=== PATIENT | female | born 1985 | race American Indian/Alaskan Native ===

== ENCOUNTER 2020-12-10 16:47 | Emergency (ER) | payer MEDICAID ==
[2020-12-10 16:54] VITALS: BP 121/84
--- NOTE | 2020-12-10 17:11 | Emergency Department Report ---
ED ENT HPI - General Chief complaint: Earache Stated complaint: BOTH EARS HURT Time Seen by Provider: 12/10/20 17:02 Source: patient Mode of arrival: Ambulatory Limitations: No Limitations - History of Present Illness Initial comments: Patient is a 35-year-old female presents emergency room with complaints of wanting to have her ears checked. Patient states that approximately 3 months ago she went to another hospital and was diagnosed with otitis externa and given antibiotic eardrops. She states approximately a month ago she went again to have her ears evaluated and reports that she was told her ears were normal. She states that she is still been having some ear pressure and occasionally has drainage. She denies any fever, swelling, difficulty hearing. No past medical history. Allergy to codeine and penicillin. - Related Data Allergies Allergy/AdvReac Type Severity Reaction Status Date / Time codeine AdvReac Itching Verified 12/10/20 16:55 Penicillins AdvReac Anaphylaxis Verified 12/10/20 16:55 ED Dental HPI - General Chief complaint: Earache Stated complaint: BOTH EARS HURT Time Seen by Provider: 12/10/20 17:02 Source: patient Mode of arrival: Ambulatory Limitations: No Limitations - Related Data Allergies Allergy/AdvReac Type Severity Reaction Status Date / Time codeine AdvReac Itching Verified 12/10/20 16:55 Penicillins AdvReac Anaphylaxis Verified 12/10/20 16:55 ED Review of Systems ROS: Stated complaint: BOTH EARS HURT Other details as noted in HPI Comment: All other systems reviewed and negative ED Physical Exam - General Limitations: No Limitations General appearance: alert, in no apparent distress - Head Head exam: Present: atraumatic, normocephalic - Eye Eye exam: Present: normal appearance - ENT ENT exam: Present: mucous membranes moist, TM's normal bilaterally, normal external ear exam, other (bilateral TMs and canals are normal in appearance, no drainage, no scaling, no erythema, no TM perforation, no mastoid ttp or edema bilaterally ) - Neurological Exam Neurological exam: Present: alert, oriented X3 - Psychiatric Psychiatric exam: Present: normal affect, normal mood - Skin Skin exam: Present: warm, dry, intact ED Course Vital Signs 12/10/20 16:53 Temperature 98.1 F Pulse Rate 85 Respiratory 16 Rate Blood Pressure 121/84 [Left] O2 Sat by Pulse 99 Oximetry ED Medical Decision Making - Medical Decision Making Patient is a 35-year-old female presents emergency room with complaints of wanting to have her ears checked. Patient states that approximately 3 months ago she went to another hospital and was diagnosed with otitis externa and given antibiotic eardrops. She states approximately a month ago she went again to have her ears evaluated and reports that she was told her ears were normal. She states that she is still been having some ear pressure and occasionally has drainage. She denies any fever, swelling, difficulty hearing. No past medical history. Allergy to codeine and penicillin. Vitals are normal. On exam:bilateral TMs and canals are normal in appearance, no drainage, no scaling, no erythema, no TM perforation, no mastoid ttp or edema bilaterally. Patient has no signs of infection. Patient will be referred to ENT. Discussed the importance of follow-up and discussed return precautions. Advised patient Follow-up with a institutional research director. Return to emergency room for any new or worsening symptoms. Critical care attestation.: If time is entered above; I have spent that time in minutes in the direct care of this critically ill patient, excluding procedure time. ED Disposition Clinical Impression: Ear pressure Qualifiers: Laterality: bilateral Qualified Code(s): H93.8X3 - Other specified disorders of ear, bilateral Disposition: 01 HOME / SELF CARE / HOMELESS Is pt being admited?: No Does the pt Need Aspirin: No Condition: Stable Instructions: Earache, Adult Additional Instructions: Follow-up with a institutional research director. Return to emergency room for any new or worsening symptoms. Referrals: CABRERA BERGER MD [Referring] - 2-3 Days DILLON JOSE MD [Staff Physician] - 2-3 Days Forms: Work/School Release Form(ED) Time of Disposition: 17:10 Print Language: JAPANESE
== END 2020-12-10 17:32 | disposition home or self-care (01) ==
LOC: ED 16:47
DX: H93.8X3 Other specified disorders of ear, bilateral (principal); Z88.0 Allergy status to penicillin; Z88.5 Allergy status to narcotic agent
CPT/HCPCS: 99281

== ENCOUNTER 2020-12-19 21:07 | Emergency (ER) | payer MEDICAID ==
[2020-12-19 21:28] VITALS: BP 136/80
--- NOTE | 2020-12-19 22:20 | Emergency Department Report ---
ED General Adult HPI - General Chief complaint: Dizziness Stated complaint: SOB Time Seen by Provider: 12/19/20 21:57 Source: patient Mode of arrival: Ambulatory Limitations: No Limitations - History of Present Illness Initial comments: Patient 35-year-old female who presents with dizziness lightheadedness cough productive clear for 1 week. States nausea and diarrhea x3 today. Patient states concern for Covid denies positive contacts, Denies fevers or chills, patient does endorse malaise. Symptoms are exacerbated by activity. Symptoms are relieved by nothing tried. Patient denies history of hypertension or diabetes. Denies smoking denies substance. - Related Data Previous Rx's Medication Instructions Recorded Last Taken Type Acetaminophen [Acetaminophen TAB] 1,000 mg PO Q6HR #40 tablet 12/20/20 Unknown Rx Diphenhydramine HCl [Sleep Tabs 25 mg PO TID PRN #30 tablet 12/20/20 Unknown Rx 25MG] Metoclopramide [Reglan] 10 mg PO TID PRN #30 tab 12/20/20 Unknown Rx Allergies Allergy/AdvReac Type Severity Reaction Status Date / Time codeine AdvReac Itching Verified 12/10/20 16:55 Penicillins AdvReac Anaphylaxis Verified 12/10/20 16:55 ED Review of Systems ROS: Stated complaint: SOB Other details as noted in HPI Constitutional: malaise Eyes: denies: eye pain, eye discharge, vision change ENT: congestion Respiratory: cough. denies: shortness of breath, wheezing Cardiovascular: denies: chest pain, palpitations Endocrine: no symptoms reported Gastrointestinal: nausea, diarrhea. denies: abdominal pain, vomiting Genitourinary: denies: urgency, dysuria, discharge Musculoskeletal: denies: back pain, joint swelling, arthralgia Skin: denies: rash, lesions Neurological: headache, weakness, vertigo. denies: paresthesias Psychiatric: denies: anxiety, depression Hematological/Lymphatic: denies: easy bleeding, easy bruising ED Past Medical Hx - Past Medical History Previous Medical History?: No - Surgical History Past Surgical History?: No - Medications Home Medications: Home Medications Medication Instructions Recorded Confirmed Last Taken Type Acetaminophen [Acetaminophen TAB] 1,000 mg PO Q6HR #40 tablet 12/20/20 Unknown Rx Diphenhydramine HCl [Sleep Tabs 25 mg PO TID PRN #30 tablet 12/20/20 Unknown Rx 25MG] Metoclopramide [Reglan] 10 mg PO TID PRN #30 tab 12/20/20 Unknown Rx ED Physical Exam - General Limitations: No Limitations General appearance: alert, in no apparent distress - Head Head exam: Present: atraumatic, normocephalic - Eye Eye exam: Present: EOMI Pupils: Present: normal accommodation - ENT ENT exam: Present: mucous membranes moist - Neck Neck exam: Present: normal inspection, full ROM. Absent: tenderness - Respiratory Respiratory exam: Present: normal lung sounds bilaterally. Absent: respiratory distress, wheezes, rales, rhonchi, stridor, chest wall tenderness - Cardiovascular Cardiovascular Exam: Present: regular rate, normal rhythm, normal heart sounds. Absent: systolic murmur, diastolic murmur, rubs, gallop - GI/Abdominal GI/Abdominal exam: Present: soft, normal bowel sounds. Absent: distended, tenderness, guarding, rebound, rigid, bruit, hernia - Rectal Rectal exam: Present: deferred - Extremities Exam Extremities exam: Present: normal inspection, full ROM, normal capillary refill. Absent: tenderness - Back Exam Back exam: Present: normal inspection, full ROM. Absent: CVA tenderness (R), CVA tenderness (L) - Neurological Exam Neurological exam: Present: alert, oriented X3, CN II-XII intact, normal gait - Psychiatric Psychiatric exam: Present: normal affect, normal mood - Skin Skin exam: Present: warm, dry, intact, normal color. Absent: rash ED Course Vital Signs 12/19/20 21:27 Temperature 98.8 F Pulse Rate 99 H Respiratory 18 Rate Blood Pressure 136/80 [Right] O2 Sat by Pulse 100 Oximetry ED Medical Decision Making - Lab Data Result diagrams: 12/19/20 22:43 12/19/20 22:43 Labs 12/19/20 12/19/20 22:43 22:43 WBC 12.8 H RBC 4.31 Hgb 13.2 Hct 38.2 MCV 89 MCH 31 MCHC 34 RDW 14.3 Plt Count 272 Lymph % (Auto) 29.7 Sunflower % (Auto) 6.0 Eos % (Auto) 1.5 Baso % (Auto) 0.7 Lymph # (Auto) 3.8 Sunflower # (Auto) 0.8 Eos # (Auto) 0.2 Baso # (Auto) 0.1 Seg Neutrophils % 62.1 Seg Neutrophils # 8.0 H Sodium 141 Potassium 4.0 Chloride 107.7 H Carbon Dioxide 22 Anion Gap 15 BUN 8 Creatinine 0.8 Estimated GFR > 60 BUN/Creatinine Ratio 10 Glucose 100 Calcium 8.9 Total Bilirubin 0.20 AST 11 ALT 8 Alkaline Phosphatase 52 Troponin T < 0.010 Total Protein 6.6 Albumin 3.9 Albumin/Globulin Ratio 1.4 - Radiology Data Radiology results: report reviewed, image reviewed interpreted by me: CHEST 2 VIEWS INDICATION / CLINICAL INFORMATION: Dizziness. COMPARISON: None available. FINDINGS: SUPPORT DEVICES: None. HEART / MEDIASTINUM: No significant abnormality. LUNGS / PLEURA: No significant pulmonary or pleural abnormality. No pneumothorax. ADDITIONAL FINDINGS: No significant additional findings. IMPRESSION: 1. No acute findings. Signer Name: Merlin Harrison MD Signed: 12/19/2020 11:09 PM Workstation Name: [id number] Transcribed By: Dictated By: Merlin Harrison MD Electronically Authenticated By: Merlin Harrison MD Signed Date/Time: 12/19/20 4491 - Medical Decision Making X-ray normal no infiltrates no opacities, airways patent no exudate no lesions no swelling. Patient is tolerating p.o. intake. Is likely viral syndrome versus sinusitis. He is resolved with medications given in ED. Plan DC with prescriptions, follow-up with neurology in 2 to 3 days. Return to emergency s hould symptoms worsen. Patient will maintain BP log until return follow-up visit with primary care doctor. Patient DC'd home in stable condition at this time Critical care attestation.: If time is entered above; I have spent that time in minutes in the direct care of this critically ill patient, excluding procedure time. ED Disposition Clinical Impression: Sinus headache Headache Qualifiers: Headache type: tension-type Headache chronicity pattern: acute headache Intractability: not intractable Qualified Code(s): G44.209 - Tension-type headache, unspecified, not intractable Disposition: 01 HOME / SELF CARE / HOMELESS Is pt being admited?: No Does the pt Need Aspirin: No Condition: Stable Instructions: Form - Headache Record Additional Instructions: Take medications as prescribed , follow up with your doctor n 2-3 dasys, return to [facility] if symptoms worsen Prescriptions: Acetaminophen [Acetaminophen TAB] 1,000 mg PO Q6HR #40 tablet Metoclopramide [Reglan] 10 mg PO TID PRN #30 tab PRN Reason: Headache Diphenhydramine HCl [Sleep Tabs 25MG] 25 mg PO TID PRN #30 tablet PRN Reason: Headache Referrals: VIRY MICHAEL MD [Referring] - 3-5 Days Forms: Work/School Release Form(ED) Time of Disposition: 02:14
[2020-12-19 22:57] LABS: Basophils # (Auto) 0.1 K/mm3 (0.0-0.1); Basophils % (Auto) 0.7 % (0.0-1.8); Eosinophils # (Auto) 0.2 K/mm3 (0.0-0.4); Eosinophils % (Auto) 1.5 % (0.0-4.3); Hematocrit 38.2 % (30.3-42.9); Hemoglobin 13.2 gm/dl (10.1-14.3); Lymphocytes # (Auto) 3.8 K/mm3 (1.2-5.4); Lymphocytes % (Auto) 29.7 % (13.4-35.0); Mean Corpuscular HGB Conc 34 % (30-34); Mean Corpuscular Volume 89 fl (79-97); Monocytes # (Auto) 0.8 K/mm3 (0.0-0.8); Platelet Count 272 K/mm3 (140-440); Red Blood Count 4.31 M/mm3 (3.65-5.03); Red Cell Distribution Width 14.3 % (13.2-15.2)
--- NOTE | 2020-12-19 23:13 | XRay Report ---
CHEST 2 VIEWS INDICATION / CLINICAL INFORMATION: Dizziness. COMPARISON: None available. FINDINGS: SUPPORT DEVICES: None. HEART / MEDIASTINUM: No significant abnormality. LUNGS / PLEURA: No significant pulmonary or pleural abnormality. No pneumothorax. ADDITIONAL FINDINGS: No significant additional findings. IMPRESSION: 1. No acute findings. Signer Name: Merlin Harrison MD Signed: 12/19/2020 11:09 PM Workstation Name: [id number]
[2020-12-19 23:24] LABS: Alanine Aminotransferase 8 units/L (7-56); Albumin 3.9 g/dL (3.9-5); BUN/Creatinine Ratio 10; Blood Urea Nitrogen 8 mg/dL (7-17); Calcium 8.9 mg/dL (8.4-10.2); Hemolysis Index 1
== END 2020-12-20 03:00 | disposition home or self-care (01) ==
LOC: ED 21:07
DX: G44.89 Other headache syndrome (principal); Z88.0 Allergy status to penicillin; Z88.5 Allergy status to narcotic agent
CPT/HCPCS: 36415; 71046; 80053; 84484; 85025; 99283